=== PATIENT | female | born 2000 | race Caucasian/White ===

== ENCOUNTER 2023-06-29 08:44 | Emergency (ER) | payer MEDICAID ==
[~2023-06-29] VITALS: Ht 160 cm; Wt 73.0 kg
[2023-06-29 08:56] VITALS: BP 114/78; PULSE 92; RESP 18; TEMP 98.2; O2SAT 98
[2023-06-29] MEDS ORDERED: OXYCODONE HCL/ACETAMINOPHEN 5/325MG TABLET PO ONE (10:00)
[2023-06-29] MEDS ORDERED: NAPR220C61 MT (13:04)
[2023-06-29] MEDS ORDERED: IBUPROFEN 600MG TABLET PO ONE (13:45)
[2023-06-29 15:25] LABS: BASOPHILS % 0.2 % (0.0-2.0); EOSINOPHILS % 0.7 % (0.0-5.0); HEMATOCRIT. 36.7 % (36.0-48.0); HEMOGLOBIN. 12.1 g/dL (12.0-16.0); LYMPHOCYTES % 33.8 % (20.0-50.0); MEAN CORPUSCULAR HEMOGLOBIN 30.8 pg (28.0-32.0); MEAN CORPUSCULAR HGB CONC 32.9 g/dL (31.0-37.0); MEAN CORPUSCULAR VOLUME 93.7 fL (81.0-99.0); MEAN PLATELET VOLUME 8.8 fl (7.4-10.4); MONOCYTES % 7.7 % (2.0-8.0); NEUTROPHILS % 57.6 % (40.0-76.0); PLATELET 244 x1000/uL (130-400); RED BLOOD CELL COUNT 3.92 mill/uL (4.2-5.4); WHITE BLOOD COUNT 8.2 x1000/uL (4.5-11.0)
[2023-06-29 16:56] LABS: SODIUM 137 mEq/L (136-145)
[2023-06-29 16:57] LABS: CARBON DIOXIDE 22 mEq/L (21-32); CHLORIDE 104 mEq/L (98-107); CREATININE 0.5 mg/dL (0.6-1.0); GLUCOSE 84 mg/dL (70-105); POTASSIUM 3.5 mEq/L (3.5-5.1); UREA NITROGEN BLOOD 6 mg/dL (9-23)
[2023-06-29 16:58] LABS: CALCIUM 9.1 mg/dL (8.7-10.4)
[2023-06-29 17:38] LABS: B-HCG QUANTITATIVE 23158 mIU/mL (<3)
== END 2023-06-29 17:35 | disposition home or self-care (01) ==
LOC: ER 09:48
DX: S00.83XA Contusion of other part of head, initial encounter (principal); O34.01 Maternal care for unspecified congenital malformation of uterus, first trimester; Q51.28 Other and unspecified doubling of uterus; Z3A.01 Less than 8 weeks gestation of pregnancy; O26.891 Other specified pregnancy related conditions, first trimester; V49.40XA Driver injured in collision with unspecified motor vehicles in traffic accident, initial encounter; Y93.89 Activity, other specified; Y92.89 Other specified places as the place of occurrence of the external cause; Y99.8 Other external cause status
CPT/HCPCS: 36415; 70486; 76801; 80048; 84702; 85025; 99284